=== PATIENT | female | born 1995 | race Caucasian/White ===

== ENCOUNTER → 2023-05-19 08:26 | Outpatient (BNVA) | payer BC, SELFPAY | PROVIDERS: Visit Provider Registered Nurse | DX: Z79.899 Other long term (current) drug therapy (principal); G47.00 Insomnia, unspecified; G47.10 Hypersomnia, unspecified; F33.1 Major depressive disorder, recurrent, moderate | CPT/HCPCS: 80053; 80061; 82306; 82607; 83036; 83540; 84443; 85025 ==